=== PATIENT | female | born 1995 | race Caucasian/White ===

== ENCOUNTER 2016-12-24 17:55 | Emergency (ER) | payer OTHER | END 2016-12-24 19:11 | disposition home or self-care (01) | LOC: ER 17:55 | DX: J06.9 Acute upper respiratory infection, unspecified (principal); G43.909 Migraine, unspecified, not intractable, without status migrainosus; F32.9 Major depressive disorder, single episode, unspecified; Z90.89 Acquired absence of other organs; Z88.4 Allergy status to anesthetic agent; Z79.899 Other long term (current) drug therapy | CPT/HCPCS: 87502 ==